=== PATIENT | male | born 2000 | race Caucasian/White ===

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

== ENCOUNTER 2018-10-19 09:42 | Emergency (ER) | payer SELFPAY ==
[~2018-10-19] VITALS: Ht 170.2 cm; Wt 61.8 kg
[~2018-10-19 09:42] MED LIST changes: +CYCL10TA7 PO; +IBUP-1561 PO; -IBUP400T22 PO; +NAPR-985 PO
[2018-10-19 09:54] VITALS: Ht 170.2 cm; Wt 61.8 kg
[2018-10-19] MEDS ORDERED: ONDANSETRON 4 MG INJ IV STA (11:54)
[2018-10-19] MEDS ORDERED: morphine 4 MG/ML VIAL IV STA (11:54)
[2018-10-19] MEDS ORDERED: SOD CHLORIDE 0.9% 1,000 ML IV STA (11:54)
--- NOTE | 2018-10-19 12:08 | ERD ---
ER Documentation Chief Complaint Chief Complaint RLQ pain since last night, n/v/d R/O luis a per PMD HPI 17-year-old male presents complaint of right lower quadrant pain since yesterday. Patient was referred to come to here by his doctor. Patient states that he has been having nausea, vomiting, diarrhea as well during this time. St ates that he vomited 8 times yesterday. Vomitus is described as nonbilious and nonbloody. Diarrhea is also described as nonbloody. States it is been painful for him to walk. Denies any dysuria, Constipation, fevers, genital pain, treatments. Denies past medical history. Denies allergies. ROS All systems reviewed and are negative except as per history of present illness. Medications Home Meds Active Scripts Bismuth Subsalicylate* (Bismuth Subsalicylate*) 262 Mg/15 Ml Oral.susp, 15 ML PO Q6 PRN for DIARRHEA, #1 BOTTLE Prov:ANISH CAT 10/19/18 Ondansetron (Ondansetron Odt) 8 Mg Tab.rapdis, 8 MG PO Q6H PRN for NAUSEA AND/OR VOMITING, #10 TAB Prov:ANISH CAT 10/19/18 Acetaminophen* (Tylophen*) 500 Mg Capsule, 2 CAP PO Q8H PRN for PAIN AND OR ELEVATED TEMP, #20 CAP Prov:ANISH CAT 10/19/18 Cyclobenzaprine Hcl* (Cyclobenzaprine Hcl*) 10 Mg Tablet, 10 MG PO QHS, #7 TAB Prov:SAL PIZARRO PA-C 05/02/17 Acetaminophen* (Tylophen*) 500 Mg Capsule, 1 CAP PO Q6H PRN for PAIN AND OR ELEVATED TEMP, #30 CAP Prov:SAL PIZARRO PA-C 05/02/17 Naproxen* (Naprosyn*) 500 Mg Tablet, 500 MG PO BID PRN for PAIN AND/OR INFLAMMATION, #30 TAB Prov:SAL PIZARRO PA-C 05/02/17 Ibuprofen* (Motrin*) 400 Mg Tab, 400 MG PO Q6, #30 TAB Prov:UGILHERME YOUSSEF PA-C 06/23/15 Acetaminophen* (Tylophen*) 500 Mg Capsule, 1 CAP PO Q6H PRN for PAIN AND OR ELEVATED TEMP, #20 CAP Prov:GUILHERME YOUSSEF PA-C 06/23/15 Reported Medications [None] No Conflict Check 12/23/09 Allergies Allergies: Coded Allergies: No Known Drug Allergy (Verified Allergy, Mild, 05/01/17) PMhx/Soc History of Surgery: Yes (LEFT LEG SX) Anesthesia Reaction: No Hx Neurological Disorder: No Hx Respiratory Disorders: No Hx Cardiac Disorders: Yes (HOLE IN HEART) Hx Psychiatric Problems: No Hx Miscellaneous Medical Probl: No Hx Alcohol Use: No Hx Substance Use: No Hx Tobacco Use: No Smoking Status: Never smoker FmHx Family History: No diabetes, No coronary disease, No other Physical Exam Vitals Vital Signs Date Temp Pulse Resp B/P (MAP) Pulse Ox O2 O2 Flow FiO2 Time Delivery Rate 10/19/18 97.4 68 17 117/70 99 Room Air 14:20 (86) 10/19/18 98.1 68 20 139/89 100 09:54 (106) Physical Exam Const: No acute distress Head: Atraumatic Eyes: Normal Conjunctiva ENT: Normal External Ears, Nose and Mouth. Neck: Full range of motion. No meningismus. Resp: Clear to auscultation bilaterally Cardio: Regular rate and rhythm, no murmurs Abd: McBurney's point tenderness. Patient is unable to jump up and down on exam. There is no guarding or rigidity otherwise. : Testes are nontender to palpation and nonedematous bilaterally. Scrotum is not edematous or erythematous. There is no transverse lie noted. Skin: No petechiae or rashes Back: No midline or flank tenderness Ext: No cyanosis, or edema Neur: Awake and alert Psych: Normal Mood and Affect Result Diagram: 10/19/18 1200 10/19/18 1200 Results 24 hrs Laboratory Tests Test 10/19/18 12:00 White Blood Count 5.0 10^3/ul Red Blood Count 5.64 10^6/ul Hemoglobin 17.4 g/dl Hematocrit 49.1 % Mean Corpuscular Volume 87.1 fl Mean Corpuscular Hemoglobin 30.9 pg Mean Corpuscular Hemoglobin Concent 35.4 g/dl Red Cell Distribution Width 11.9 % Platelet Count 241 10^3/UL Mean Platelet Volume 9.8 fl Immature Granulocytes % 0.200 % Neutrophils % 58.3 % Lymphocytes % 25.0 % Monocytes % 15.9 % Eosinophils % 0.2 % Basophils % 0.4 % Nucleated Red Blood Cells % 0.0 /100WBC Immature Granulocytes # 0.010 10^3/ul Neutrophils # 2.9 10^3/ul Lymphocytes # 1.3 10^3/ul Monocytes # 0.8 10^3/ul Eosinophils # 0.0 10^3/ul Basophils # 0.0 10^3/ul Nucleated Red Blood Cells # 0.0 10^3/ul Urine Color YELLOW Urine Clarity CLEAR Urine pH 7.0 Urine Specific Seymour 1.006 Urine Ketones NEGATIVE mg/dL Urine Nitrite NEGATIVE mg/dL Urine Bilirubin NEGATIVE mg/dL Urine Urobilinogen NEGATIVE mg/dL Urine Leukocyte Esterase NEGATIVE Sara/ul Urine Hemoglobin NEGATIVE mg/dL Urine Glucose NEGATIVE mg/dL Urine Total Protein NEGATIVE mg/dl Sodium Level 142 mmol/L Potassium Level 3.9 mmol/L Chloride Level 101 mmol/L Carbon Dioxide Level 31 mmol/L Anion Gap 10 Blood Urea Nitrogen 11 mg/dl Creatinine 0.87 mg/dl Est Glomerular Filtrat Rate mL/min > 60 mL/min Glucose Level 90 mg/dl Calcium Level 9.5 mg/dl Total Bilirubin 0.9 mg/dl Direct Bilirubin 0.00 mg/dl Indirect Bilirubin 0.9 mg/dl Aspartate Amino Transf (AST/SGOT) 20 IU/L Alanine Aminotransferase (ALT/SGPT) 25 IU/L Alkaline Phosphatase 63 IU/L Total Protein 7.6 g/dl Albumin 4.8 g/dl Globulin 2.80 g/dl Albumin/Globulin Ratio 1.71 Lipase 46 U/L Current Medications Medications Dose Sig/Little Start Time Status Last (Trade) Ordered Route PRN Stop Time Admin Dose Reason Admin Sodium 1,000 ml @ Q1H STAT 10/19/18 DC 10/19/18 Chloride 1,000 mls/hr IV 11:54 10/19/18 12:02 12:53 Morphine 4 mg ONCE STAT 10/19/18 DC 10/19/18 Sulfate IV 11:54 10/19/18 12:03 (morphine) 11:56 Ondansetron 4 mg ONCE STAT 10/19/18 DC 10/19/18 HCl (Zofran IV 11:54 10/19/18 12:03 Inj) 11:56 IV Flush 10 ml STK-MED 10/19/18 DC (NS 10 ml) ONCE .ROUTE 12:49 10/19/18 12:50 Sodium 100 ml @ ud STK-MED 10/19/18 DC Chloride ONCE .ROUTE 12:49 10/19/18 12:50 Iohexol 150 ml STK-MED 10/19/18 DC (Omnipaque ONCE .ROUTE 12:49 10/19/18 300mg/ ml) 12:50 Procedures/[facility] DIAGNOSTIC IMAGING REPORT Patient: JUSTIN PARK : 2000 Age: 17 Sex: M MR #: [id number] DOS: 10/19/18 1154 Ordering MD: ANISH CAT Location: [facility] Room/Bed: PROCEDURE: CT Abdomen and pelvis with contrast. CLINICAL INDICATION: Abdominal pain TECHNIQUE: CT scan of the abdomen and pelvis with contrast was performed on a multidetector high-resolution CT scan. The patient was scanned following the uncomplicated intravenous administration of 100 ml Omnipaque-300. Coronal and sagittal reformatted images were obtained from the axial source images. Standard CT of the abdomen pelvis with contrast protocols were performed. The total exam CTDI equals 5.1 mGy and the total exam DLP equals 292.54 mGy-cm. One or more of the following dose reduction techniques were used: - Automated exposure control. - Adjustment of the mA and/or kV according to patient size. Use of iterative reconstruction technique. Dicom images are available COMPARISON: None. FINDINGS: The stomach, small bowel, large bowel and appendix are unremarkable. The kidneys are normal in size without calcified calculi hydronephrosis or intra renal masses bilaterally. No evidence of ureteral calcified calculi or dilatation. Unremarkable urinary bladder and prostate. There is trace free fluid within the posterior lower abdominal cavity at the level of the distal sigmoid colon and proximal rectum. No other intra-abdominal free fluid. No intra-abdominal abscess, free air or lymphadenopathy. There are numerous nonspecific lymph nodes in the right mid to lower abdominal mesentery that is nonspecific and rule out mesenteric lymphadenitis. Liver spleen pancreas adrenal glands and gallbladder are unremarkable. No evid ence biliary ductal dilation. Lung bases unremarkable. Aorta unremarkable. Abdominal pelvic wall unremarkable. Osseous structures unremarkable. IMPRESSION: 1. Trace free fluid in the lower abdominal cavity at the level of the distal sigmoid colon and proximal rectum without abscess or free air. 2. Prominent nonspecific lymph nodes in the mid to lower right mesentery rule out mesenteric lymphadenitis. No lymphadenopathy. 3. No evidence of calcified urinary calculi or obstructive uropathy. 4. No gastrointestinal disease. RPTAT:AAJJ Physician Holly Date Time Electronically viewed and signed by Stacie Agee Physician on 10/19/2018 13:21 BM/ CC: ANISH CAT [id number] There was suspicion for appendicitis based on the McBurney's point tenderness as well as patient unable to jump up and down on exam without difficulty, therefore CT abdomen pelvis with contrast was ordered. CT results showed no appendicitis however they did show evidence of possible infection. I have low suspicion for volvulus or obstruction due patient history and exam, including lack of history of biliary emesis and normal physical exam. I have low suspicion for testicular torsion or phimosis due to patient history and normal exam. I have low suspicion of invasive diarrhea due to patient history and exam, including lack of hematochezia. I have low suspicion of DKA based on patient history and exam, including normal glucose, urinalysis, and lack of signs of de hydration. I have low suspicion for adrenal crisis, AAA, mesenteric ischemia, pyelonephritis, cholecystitis, aortic dissection, ectopic, ID, pneumonia, acute pancreatitis, PID, or other emergent causes based on patient history and exam. Most likely diagnosis is viral gastritis. Based on these findings I do not feel that additional labs, imaging. or antibiotics are necessary. Patient was disch arged with rx for zofran, and tylenol. Patient was discharged with strict ER precautions. Patient was recommended to follow-up with PMD. All questions answered at discharge. Departure Diagnosis: Primary Impression: Abdominal pain Abdominal location: right lower quadrant Qualified Codes: R10.31 - Right lower quadrant pain Condition: Stable ANISH CAT Oct 19, 2018 12:08
[2018-10-19] MEDS ORDERED: IOHEXOL 300MG/ML 150 ML BTL ONE (12:49)
[2018-10-19] MEDS ORDERED: SOD CHLORIDE 0.9% 100 ML ONE (12:49)
[2018-10-19] MEDS ORDERED: ACET500C5 PO (14:03)
[2018-10-19] MEDS ORDERED: ONDA8TAB14 PO (14:03)
[2018-10-19] MEDS ORDERED: BISM-34 PO (14:05)
[2018-10-19 14:20] VITALS: BP 117/70; PULSE 68; RESP 17
== END 2018-10-19 14:21 | disposition home or self-care (01) ==
LOC: FTE 09:42
DX: R10.31 Right lower quadrant pain (principal); R11.2 Nausea with vomiting, unspecified
CPT/HCPCS: 36415; 74177; 80053; 81003; 83690; 85025; 96361; 96374; 96375; 99285; J2270; J2405; J7030; Q9967

== ENCOUNTER 2018-10-19 23:44 | Emergency (ER) | payer SELFPAY ==
[~2018-10-19] VITALS: Ht 175.3 cm; Wt 62.1 kg
[~2018-10-19 23:44] MED LIST changes: +BISM-34 PO; +ONDA8TAB14 PO
[2018-10-19 23:54] VITALS: BP 151/97; PULSE 95; RESP 16; Ht 175.3 cm; Wt 62.1 kg
== END 2018-10-20 02:52 | disposition left against medical advice (07) ==
LOC: FTE 23:44
DX: Z53.21 Procedure and treatment not carried out due to patient leaving prior to being seen by health care provider (principal)

== ENCOUNTER 2018-10-27 15:05 | Emergency (ER) | payer MEDICAID ==
[~2018-10-27] VITALS: Ht 175.3 cm; Wt 60.9 kg
[2018-10-27 15:07] VITALS: BP 144/84; PULSE 85; RESP 20; Ht 175.3 cm; Wt 60.9 kg
[2018-10-27] MEDS ORDERED: IBUPROFEN 200 MG TAB PO ONE (17:00)
[2018-10-27] MEDS ORDERED: IBUP-1561 PO (18:05)
[2018-10-27] MEDS ORDERED: ACET-141 PO (18:05)
--- NOTE | 2018-10-27 18:09 | ERD ---
ER Documentation Chief Complaint Chief Complaint pt is bib self with c/o "hard to breath" pain with resp x 3 days ROS All systems reviewed and are negative except as per history of present illness. Medications Home Meds Active Scripts Ibuprofen* (Motrin*) 400 Mg Tab, 400 MG PO Q6H PRN for PAIN AND OR ELEVATED TEMP, #30 TAB Prov:JAKOB HAJI DO 10/27/18 Acetaminophen* (Acetaminophen*) 500 MG Extra Strength Tablet, 500 MG PO Q4H PRN for PAIN AND OR ELEVATED TEMP, #30 TAB Prov:JAKOB HAJI DO 10/27/18 Bismuth Subsalicylate* (Bismuth Subsalicylate*) 262 Mg/15 Ml Oral.susp, 15 ML PO Q6 PRN for DIARRHEA, #1 BOTTLE Prov:ANISH CAT 10/19/18 Ondansetron (Ondansetron Odt) 8 Mg Tab.rapdis, 8 MG PO Q6H PRN for NAUSEA AND/OR VOMITING, #10 TAB Prov:ANISH CAT 10/19/18 Acetaminophen* (Tylophen*) 500 Mg Capsule, 2 CAP PO Q8H PRN for PAIN AND OR ELEVATED TEMP, #20 CAP Prov:ANISH CAT 10/19/18 Cyclobenzaprine Hcl* (Cyclobenzaprine Hcl*) 10 Mg Tablet, 10 MG PO QHS, #7 TAB Prov:SAL PIZARRO PA-C 05/02/17 Acetaminophen* (Tylophen*) 500 Mg Capsule, 1 CAP PO Q6H PRN for PAIN AND OR ELEVATED TEMP, #30 CAP Prov:SAL PIZARRO PA-C 05/02/17 Naproxen* (Naprosyn*) 500 Mg Tablet, 500 MG PO BID PRN for PAIN AND/OR INFLAMMATION, #30 TAB Prov:SAL PIZARRO PA-C 05/02/17 Ibuprofen* (Motrin*) 400 Mg Tab, 400 MG PO Q6, #30 TAB Prov:GUILHERME YOUSSEF PA-C 06/23/15 Acetaminophen* (Tylophen*) 500 Mg Capsule, 1 CAP PO Q6H PRN for PAIN AND OR ELEVATED TEMP, #20 CAP Prov:GUILHERME YOUSSEF PA-C 06/23/15 Reported Medications [None] No Conflict Check 12/23/09 Allergies Allergies: Coded Allergies: No Known Drug Allergy (Verified Allergy, Mild, 05/01/17) PMhx/Soc Medical and Surgical Hx: pt denies Medical Hx, pt denies Surgical Hx History of Surgery: Yes (LEFT LEG SX) Anesthesia Reaction: No Hx Neurological Disorder: No Hx Respiratory Disorders: No Hx Cardiac Disorders: Yes (HOLE IN HEART) Hx Psychiatric Problems: No Hx Miscellaneous Medical Probl: No Hx Alcohol Use: No Hx Substance Use: No Hx Tobacco Use: No Smoking Status: Never smoker Physical Exam Vitals Vital Signs Date Temp Pulse Resp B/P (MAP) Pulse Ox O2 O2 Flow FiO2 Time Delivery Rate 10/27/18 98.1 85 20 144/84 100 15:07 (104) Physical Exam Const: No acute distress Head: Atraumatic Eyes: Normal Conjunctiva ENT: Normal External Ears, Nose and Mouth. Neck: Full range of motion. No meningismus. Resp: Clear to auscultation bilaterally Cardio: Regular rate and rhythm, no murmurs Abd: Soft, non tender, non distended. Normal bowel sounds Skin: No petechiae or rashes Back: No midline or flank tenderness Ext: No cyanosis, or edema Neur: Awake and alert Psych: Normal Mood and Affect Results 24 hrs Current Medications Medications Dose Sig/Little Start Time Status Last (Trade) Ordered Route PRN Stop Time Admin Dose Reason Admin Ibuprofen 400 mg ONCE ONCE 10/27/18 DC 10/27/18 (Motrin) PO 17:00 17:04 10/27/18 17:01 Departure Diagnosis: Primary Impression: Chest pain Chest pain type: unspecified Qualified Codes: R07.9 - Chest pain, unspecified Condition: Fair Patient Instructions: Chest Pain, Uncertain Cause Referrals: COMMUNITY CLINICS YOU HAVE RECEIVED A MEDICAL SCREENING EXAM AND THE RESULTS INDICATE THAT YOU DO NOT HAVE A CONDITION THAT REQUIRES URGENT TREATMENT IN THE EMERGENCY DEPARTMENT. FURTHER EVALUATION AND TREATMENT OF YOUR CONDITION CAN WAIT UNTIL YOU ARE SEEN IN YOUR DOCTORS OFFICE WITHIN THE NEXT 1-2 DAYS. IT IS YOUR RESPONSIBILITY TO MAKE AN APPOINTMENT FOR FOLOW-UP CARE. IF YOU HAVE A PRIMARY DOCTOR --you should call your primary doctor and schedule an appointment IF YOU DO NOT HAVE A PRIMARY DOCTOR YOU CAN CALL OUR PHYSICIAN REFERRAL HOTLINE AT IF YOU CAN NOT AFFORD TO SEE A PHYSICIAN YOU CAN CHOSE FROM THE FOLLOWING [facility] [address] [facility] [address] [facility] [address] [facility] [address] [facility] [facility] [phone] [id number] [facility]. [facility] [address] Additional Instructions: Call your primary care doctor TOMORROW for an appointment during the next 1-2 days.See the doctor sooner or return here if your condition worsens before your appointment time. Follow up with heel stiffener in 2-3 days. JAKOB HAJI DO Oct 27, 2018 18:09
== END 2018-10-27 18:12 | disposition home or self-care (01) ==
LOC: FTE 15:05
DX: R07.9 Chest pain, unspecified (principal)
CPT/HCPCS: 71046; 93005; Z7502; Z7610